=== PATIENT | female | born 1955 | race Hispanic/Latino ===

== ENCOUNTER → 2018-01-20 | Outpatient (CLI) | payer BC | END | disposition home or self-care (01) | LOC: RAH 08:32 | PROVIDERS: ATTEND Family Medicine | DX: N63.12 Unspecified lump in the right breast, upper inner quadrant (principal); N63.22 Unspecified lump in the left breast, upper inner quadrant; R92.2 Inconclusive mammogram | CPT/HCPCS: 76642; 77066 ==

== ENCOUNTER → 2018-11-16 | Outpatient (CLI) | payer OTHER | END | disposition home or self-care (01) | LOC: RAH 10:39 | PROVIDERS: ATTEND Family Medicine | DX: Z13.6 Encounter for screening for cardiovascular disorders (principal) | CPT/HCPCS: 75571 ==

== ENCOUNTER → 2019-02-01 | Outpatient (CLI) | payer BC | END | disposition home or self-care (01) | LOC: RAH 10:27 | PROVIDERS: ATTEND Family Medicine | DX: Z12.31 Encounter for screening mammogram for malignant neoplasm of breast (principal) | CPT/HCPCS: 77067 ==

== ENCOUNTER → 2020-07-31 | Outpatient (CLI) | payer BC | END | disposition home or self-care (01) | LOC: RAH 09:19 | PROVIDERS: ATTEND Family Medicine | DX: Z12.31 Encounter for screening mammogram for malignant neoplasm of breast (principal) | CPT/HCPCS: 77067 ==

== ENCOUNTER → 2021-07-25 | Outpatient (CLI) | payer BC ==
[~2021-07-25] VITALS: Ht 152.4 cm; Wt 65.3 kg
== END | disposition home or self-care (01) ==
LOC: CANPRESDC → DAH 10:00 → EDSTATUS 07-29 09:00
PROVIDERS: ATTEND Surgery
DX: K80.10 Calculus of gallbladder with chronic cholecystitis without obstruction (principal); Z20.822 Contact with and (suspected) exposure to COVID-19
CPT/HCPCS: 87635; 93005; A6260; C9803

== ENCOUNTER → 2024-09-07 | Outpatient (CLI) | payer BC, MEDICARE | END | disposition home or self-care (01) | LOC: RAH 14:16 | PROVIDERS: ATTEND Family Medicine | DX: Z12.31 Encounter for screening mammogram for malignant neoplasm of breast (principal) | CPT/HCPCS: 77067 ==